=== PATIENT | female | born 1955 | race Caucasian/White ===

== ENCOUNTER 2016-12-01 15:07 | Outpatient (CLI) | payer OTHER ==
[2016-12-01 15:34] LABS: #Basophils 0.2 thou/uL (0.0-0.2); #Eosinphils 0.2 thou/uL (0.0-0.7); #Lymphocytes 2.7 thou/uL (1.20-3.40); #Monocytes 1.3 thou/uL (0.11-0.59); #Neutrophils 13.3 thou/uL (1.40-6.50); %Basophils 1.1 % (0.0-1.0); %Eosinophils 1.3 % (0.0-10.0); %Monocytes 7.2 % (0.0-10.0); %Neutrophils 75.4 % (42.0-75.0); Hemoglobin 10.8 g/dL (12.0-16.0); Mean Corpuscular HGB CONC 30.9 g/dL (32.0-36.0); Mean Corpuscular Hemoglobin 25.8 pg (27.0-31.0); Mean Corpuscular Volume 83.5 fl (81.0-99.0); Mean Platelet Volume 8.3 fL (7.4-10.4); Platelet Count 436 thou/uL (130-400); RBC Distribution Width 17.7 % (11.5-14.5); Red Blood Cell (RBC) Count 4.21 mill/uL (4.20-5.40); White Blood Cell (WBC) Count 17.6 thou/uL (4.8-10.8)
[2016-12-01 15:59] LABS: Bilirubin Negative (Negative); Blood, Urine Moderate (Negative); Clarity Clear (Clear); Glucose, Urine (Dipstick) Negative (Negative); Leukocyte Negative (Negative); Nitrite Negative (Negative); Protein, Urine (Dipstick) Trace mg/dL (Neg-Trace); Urobilinogen 0.2 mg/dL (0.2-1.0); pH, Urine 5.5 (5.0-9.0)
[2016-12-01 16:04] LABS: Anion Gap 15 mmol/L (10-20); BUN (Urea Nitrogen) 16 mg/dL (9.8-20.1); Calc. Creatinine Clearance 0 mL/min (70-130); Calcium 9.7 mg/dL (7.8-10.44); Carbon Dioxide 25 mmol/L (23-31); Chloride 100 mmol/L (98-107); Estimated GFR-MDRD 58; Potassium 4.5 mmol/L (3.5-5.1); Sodium 135 mmol/L (136-145)
[2016-12-01 16:08] LABS: Crystals/HPF 2+ CA OXALATE HPF (Negative); Squamous Epithelial 0-3 HPF (0-3)
[2016-12-01 16:43] LABS: Glucose 143 mg/dL (80-115)
== END 2016-12-01 15:08 ==
LOC: NAVSJIPCSP 15:07 → NAV LAB 15:08
PROVIDERS: ATTEND Nurse Practitioner Family
DX: R39.9 Unspecified symptoms and signs involving the genitourinary system (principal)
CPT/HCPCS: 80048; 81003; 81015; 85025; 87086

== ENCOUNTER 2016-12-13 20:03 | Emergency (ER) | payer OTHER ==
[~2016-12-13 20:03] MED LIST: Iopamidol 370 76% 100 ML VIAL ONE
[2016-12-13] MEDS ORDERED: Ondansetron HCl/PF 4 MG/2 ML Vial ONE ×2 (20:12→20:37)
[2016-12-13] MEDS ORDERED: Sodium Chloride 0.9% 1,000 ML ONE ×2 (20:29→21:53)
[2016-12-13] MEDS ORDERED: Ketorolac Tromethamine 30 MG/ML VIAL ONE (20:37)
[2016-12-13 20:55] LABS: Band 4 % (5-11); Lymphocytes 9 % (21-51); MDiff Complete? YES; Mean Corpuscular HGB CONC 31.5 g/dL (32.0-36.0); Mean Corpuscular Hemoglobin 25.4 pg (27.0-31.0); Mean Corpuscular Volume 80.8 fl (81.0-99.0); Mean Platelet Volume 7.5 fL (7.4-10.4); Monocytes 4 % (0-10); Neutrophil 83 % (42-75); PLT Morphology Comment Appears Adequate; Platelet Count 427 thou/uL (130-400); RBC Distribution Width 17.5 % (11.5-14.5); RBC Morphology Normal
[2016-12-13 21:00] LABS: CKMB 1.5 ng/mL (0-6.6); Troponin I 0.012 ng/mL (< 0.028)
[2016-12-13 21:01] LABS: ALT (SGPT) 12 U/L (0-55); AST (SGOT) 19 U/L (5-34); Albumin 3.9 g/dL (3.4-4.8); Alkaline Phosphatase 81 U/L (40-150); Anion Gap 21 mmol/L (10-20); BUN (Urea Nitrogen) 11 mg/dL (9.8-20.1); Bilirubin, Total 0.4 mg/dL (0.2-1.2); Calc. Creatinine Clearance 0 mL/min (70-130); Calcium 10.5 mg/dL (7.8-10.44); Carbon Dioxide 17 mmol/L (23-31); Chloride 103 mmol/L (98-107); Estimated GFR-MDRD 71; Globulin 5.4 g/dL (2.4-3.5); Glucose 153 mg/dL (80-115); Lipase 32 U/L (8-78); Potassium 3.8 mmol/L (3.5-5.1); Protein, Total 9.3 g/dL (5.8-8.1); Sodium 137 mmol/L (136-145)
--- NOTE | 2016-12-13 21:44 | CT ---
EXAM: ABDOMEN CT WITH CONTRAST PELVIC CT WITH CONTRAST 12/13/16 HISTORY: Abdominal pain. Crohn's disease. Vulvar adenocarcinoma. COMPARISON: 02/07/16. 09/06/14. TECHNIQUE: Abdomen and pelvic CT are performed with IV contrast. Coronal reformatted images are submitted for i nterpretation. FINDINGS: ABDOMEN CT: The lung bases are clear. Heart size is upper normal. No pericardial effusion. Descending thoracic a brandi and the abdominal aorta have a normal caliber. No periaortic fat stranding. Symmetric attenuation of the psoas muscles. Spleen is surgically absent. Splenule is noted. The panc reas and adrenal glands have a appropriate enhancement. There is appropriate enhancement of the liver. There is some nodularity along the right hepatic lobe as well as the posterior peritoneum adjacent to the posterior segment of the right hepatic lobe. Th ashly densities are similar to the prior examination and may represent small splenules. Symmetric enhancement of the kidneys. Bilaterally, no obstructive uropathy. Note, the entire ureter is not appreciated due to extensive surgical clips in the pelvis. No mesenteric mass, lymphadenopathy, free air or free fluid. Stable ostomy in the right lower quadra nt. Multiple proximal normal caliber small bowel loops. There does appear to be a transition in the over all diameter of the small bowel loops (axial image #42, coronal image #34). Beyond the level of this transition, there are multiple fluid filled loops of bowel. Obstructive process cannot be completel y excluded. Note, there are distal small bowel loops which are decompressed. There is a nonspecific hyperdensity in a segment of small bowel measuring 1.[address]: Limited evaluation due to beam attenuation artifact from surgical clips and a right hip prosthesis. Unrinary bladder is grossly unremarkable. There are multiple fluid filled loops of small bowel. IMPRESSION: 1. Extensive postsurgical changes in the pelvis rendering limited evaluation. There appear to b e fluid filled loops of prominent small bowel, in the mid portion of the small bowel. Obstructive pr ocess cannot be excluded. 2. Nonspecific hyperdensity in a segment of small bowel. 3. Multiple nodularities adjacent to the posterior segment of the right hepatic lobe and long t he peritoneal margin in the posterior right upper quadrant. Findings are similar to the prior examin ation. Possibility of small splenules is raised. POS: [facility]
[2016-12-13 22:08] LABS: Bilirubin Negative (Negative); Blood, Urine Moderate (Negative); Clarity Clear (Clear); Glucose, Urine (Dipstick) Negative (Negative); Leukocyte Negative (Negative); Nitrite Negative (Negative); Protein, Urine (Dipstick) Negative (Neg-Trace); Urobilinogen 0.2 mg/dL (0.2-1.0); pH, Urine 6.5 (5.0-9.0)
[2016-12-13 22:09] LABS: Bacteria/HPF None Seen HPF (None Seen); Specific Gravity, Urine 1.005 (1.002-1.036); WBC/HPF None Seen HPF (0-3)
[2016-12-13 23:43] LABS: Lactic Acid 1.1 mmol/L (0.5-2.2)
== END 2016-12-14 00:15 | disposition home or self-care (01) ==
LOC: NAV ERS 20:03
DX: R11.2 Nausea with vomiting, unspecified (principal); M81.0 Age-related osteoporosis without current pathological fracture; I10 Essential (primary) hypertension; Z79.899 Other long term (current) drug therapy
CPT/HCPCS: 36415; 74177; 80053; 81003; 81015; 82553; 83605; 83690; 84484; 85025; 93005; 96361; 96374; 96375; J1885; J2405; J7050

== ENCOUNTER 2016-12-25 08:53 | Outpatient (CLI) | payer OTHER ==
--- NOTE | 2016-12-25 14:24 | ULT ---
RIGHT UPPER ANTERIOR THIGH ULTRASOUND EXTREMITY NONVASCULAR COMPLETE: HISTORY: Cellulitis versus abscess. The area has grown in size from a quarter in August 2016 to the size it is today. It has worsened over the last 2 weeks. COMPARISON: Within the right anterior thigh soft tissues, there appears to be a complex fluid collection measuri ng 8 x 2.3 x 2.4 cm with a few areas of internal blood flow. The surrounding soft tissues appear hyperemic. IMPRESSION: Large collection along the right anterior thigh with a few areas of internal blood flow. This may r epresent a focal abscess given history of cellulitis. Soft tissue metastasis is felt less likely. A real-time examination performed by the radiologist is recommended. MRI with contrast may also be beneficial given the findings. POS: [facility]
== END 2016-12-25 08:54 | disposition home or self-care (01) ==
LOC: NAV ULT 08:53
PROVIDERS: ATTEND Family Medicine
DX: L03.115 Cellulitis of right lower limb (principal)
CPT/HCPCS: 76881

== ENCOUNTER 2017-02-02 18:30 | Emergency (ER) | payer OTHER ==
[2017-02-02] MEDS ORDERED: Ketorolac Tromethamine 30 MG/ML VIAL ONE (19:12)
[2017-02-02] MEDS ORDERED: Sodium Chloride 0.9% 1,000 ML ONE ×2 (19:12→22:06)
[2017-02-02] MEDS ORDERED: Ondansetron HCl/PF 4 MG/2 ML Vial ONE ×3 (19:12→23:53)
[2017-02-02] MEDS ORDERED: Ondansetron ODT 4 MG TAB ONE (19:15)
[2017-02-02 19:30] LABS: #Basophils 0.2 thou/uL (0.0-0.2); #Lymphocytes 2.4 thou/uL (1.20-3.40); #Monocytes 1.2 thou/uL (0.11-0.59); #Neutrophils 15.9 thou/uL (1.40-6.50); %Basophils 0.8 % (0.0-1.0); %Eosinophils 0.1 % (0.0-10.0); %Lymphocytes 12.3 % (21.0-51.0); %Neutrophils 80.9 % (42.0-75.0); Hemoglobin 13.1 g/dL (12.0-16.0); Mean Corpuscular HGB CONC 30.1 g/dL (32.0-36.0); Mean Corpuscular Hemoglobin 24.8 pg (27.0-31.0); Mean Corpuscular Volume 82.5 fl (81.0-99.0); Mean Platelet Volume 8.9 fL (7.4-10.4); Platelet Count 448 thou/uL (130-400); RBC Distribution Width 17.4 % (11.5-14.5); Red Blood Cell (RBC) Count 5.29 mill/uL (4.20-5.40); White Blood Cell (WBC) Count 19.7 thou/uL (4.8-10.8)
[2017-02-02 19:44] LABS: ALT (SGPT) 13 U/L (8-55); AST (SGOT) 17 U/L (5-34); Albumin 3.9 g/dL (3.4-4.8); Alkaline Phosphatase 74 U/L (40-150); Anion Gap 20 mmol/L (10-20); BUN (Urea Nitrogen) 18 mg/dL (9.8-20.1); Bilirubin, Total 0.6 mg/dL (0.2-1.2); Calc. Creatinine Clearance 0 mL/min (70-130); Calcium 10.7 mg/dL (7.8-10.44); Carbon Dioxide 22 mmol/L (23-31); Chloride 96 mmol/L (98-107); Estimated GFR-MDRD 65; Globulin 5.1 g/dL (2.4-3.5); Glucose 124 mg/dL (80-115); Lipase 20 U/L (8-78); Sodium 134 mmol/L (136-145)
[2017-02-02 19:51] LABS: Hypochromia MODERATE=16-30 cells (100X) (0-5/hpf); MDiff Complete? YES; PLT Morphology Comment Appears Increased; Poikilocytosis SLIGHT = 6-15 cells (100X) (0-5/hpf)
--- NOTE | 2017-02-02 20:02 | RAD ---
FRONTAL RADIOGRAPH CHEST 02/02/2017 HISTORY: Lower abdominal cramping. Nausea and vomiting. COMPARISON: 02/07/2016 TECHNIQUE: Upright and supine frontal imaging of the abdomen and pelvis. FINDINGS: Frontal radiograph chest demonstrates no pneumothorax or pleural fluid. No focal consolidation or a lveolar edema. Upright imaging demonstrates no free intraperitoneal air. As seen on the prior examination, there is a paucity of bowel gas. There are postoperative clips in the pelvis. There is a hip arthroplasty on the right. There is degenerative change and probable p ost traumatic change at the level of the pubic symphysis, stable. There is a suggestion of possible mild bowel wall thickening in the mid left abdomen, inferiorly, no nspecific. A partially imaged ostomy is suspected in the left lower quadrant. IMPRESSION: Paucity of bowel gas noted. No free intraperitoneal air or evidence for acute cardiopulmonary disea se. Question mild bowel wall thickening in the left lower quadrant. CT A/P may be beneficial. POS: [facility]
[2017-02-02 20:57] LABS: Blood, Urine Large (Negative); Clarity Clear (Clear); Glucose, Urine (Dipstick) Negative (Negative); Leukocyte Trace (Negative); Nitrite Negative (Negative); Protein, Urine (Dipstick) 100 mg/dL (Neg-Trace); Urobilinogen 0.2 mg/dL (0.2-1.0)
[2017-02-02 21:08] LABS: Bilirubin Negative (Negative); Icto Negative (Negative)
[2017-02-02 21:09] LABS: Bacteria/HPF Rare-Few HPF (None Seen); RBC/HPF GREATER THAN 50-TNTC HPF (0-3); WBC/HPF 0-3 HPF (0-3)
--- NOTE | 2017-02-02 22:25 | CT ---
ABDOMEN AND PELVIS CT WITHOUT CONTRAST 02/02/2017 HISTORY: Lower abdominal pain and cramping. COMPARISON: 12/13/2016 TECHNIQUE: Serial axial CT imaging obtained at 5 mm intervals, from the lung bases through the pubic symphysis, without contrast. Coronal reformatted imaging obtained. FINDINGS: Lack of contrast limits assessment of the viscera, bowel, and vascular structures, and for lymphaden opathy. Linear scar and/or volume loss noted within the lateral aspect of the imaged left lung base, stable. There is no free intraperitoneal air. Limited assessment of the liver demonstrates granulomata. The gallbladder, pancreas, and adrenal gl ands are unremarkable. The spleen is not visualized. There are nodular densities within the bilateral upper quadrants. Th ashly nodular densities are stable. Given nonvisualization of a normal spleen, this suggests splenosi s. There is a punctate, nonobstructing stone within the mid pole of the right kidney. There is no evidence for obstructive uropathy on either side. There are post surgical clips in the pre-sacral space with associated streak artifact, limiting deta iled assessment. Streak artifact is also seen involving the right hemipelvis, on the basis of a rig ht hip prosthesis. Bowel is poorly assessed secondary to the lack of contrast media. There are num erous fluid-filled dilated loops of small bowel within the mid left abdomen/left lower quadrant, the pelvis, and the right lower quadrant, demonstrating a distribution, configuration, and degree of di lation, similar when compared to the 12/13/2016 exam. The colon appears surgically absent. There are numerous decompressed distal small bowel loops within the right upper quadrant, the anteri or aspect of the mid right abdomen, and in the region of a right lower quadrant ostomy, with a simil ar differential size when compared to the prior exam. There is atherosclerotic calcification of the abdominal aorta and its branches, not well characteriz ed without contrast media. There are severe degenerative changes involving the right sacroiliac sourav nt, stable. There are degenerative and remote post traumatic changes of the pubic symphysis. There is lower lumbar spine facet hypertrophic change. IMPRESSION: Stable CT of the abdomen/pelvis, as detailed above. Numerous fluid-filled loops of prominent proxim al small bowel noted, with distal decompressed small bowel. An obstructive process cannot be exclud ed. Of note, this is unchanged when compared to the 12/13/2016 examination and may represent chroni c obstruction and/or a recurrent small bowel obstruction. Clinical correlation is essential. POS: [facility]
--- NOTE | 2017-02-03 08:20 | CT ---
PRELIMINARY REPORT/[facility]/EMERGENCY AFTER HOURS PROCEDURE: EXAM: CT Abdomen and Pelvis With Intravenous Contrast CLINICAL HISTORY: 61 years old, female; Signs and symptoms; Nausea and vomiting; Prior surgery; Surgery date: 6+ month s; Surgery type: Splenectomy, colon resection, hysterectomy, hip replacement, ostomy; Additional inf o: HX of sbo, HX of inflammatory bowel disease TECHNIQUE: Axial computed tomography images of the abdomen and pelvis with intravenous contrast. This CT exam w as performed using one or more of the following dose reduction techniques: automated exposure contro l, adjustment of the mA and/or kV according to patient size, and/or use of iterative reconstruction technique. Coronal and sagittal reformatted images were created and reviewed. CONTRAST: 95 mL of ISOVUE 370 administered intravenously. EXAM DATE/TIME: Exam ordered 02/03/2017 2:02 AM COMPARISON: No relevant prior studies available. FINDINGS: Lower thorax: No acute findings. ABDOMEN: Liver: Unremarkable. No mass. Gallbladder and bile ducts: Unremarkable. No calcified stones. No ductal dilation. Pancreas: Unremarkable. No mass. No ductal dilation. Spleen: Proper spleen is absent. Multiple small splenules in its place. Adrenals: Unremarkable. No mass. Kidneys and ureters: Unremarkable. No solid mass. No hydronephrosis. Stomach and bowel: High-grade distal small bowel obstruction with transition point in the right lowe r quadrant. Prior colectomy. Right lower quadrant ileostomy. No bowel wall thickening. Appendix: See above. PELVIS: Bladder: Unremarkable. No mass. Reproductive: Unremarkable as visualized. ABDOMEN and PELVIS: Intraperitoneal space: Trace volume ascites. No pneumoperitoneum or abscess. Bones/joints: Right hip prosthesis. No acute fracture. No dislocation. Soft tissues: Unremarkable. Vasculature: Unremarkable. No abdominal aortic aneurysm. Lymph nodes: Unremarkable. No enlarged lymph nodes. Other findings: Chronic posttraumatic change of the pelvis. IMPRESSION: High-grade distal small bowel obstruction with transition point in the right lower quadrant. Thank you for allowing us to participate in the care of your patient. Dictated and Authenticated by: Yaakov Carlos MD 02/03/2017 2:56 AM Central Time ([place] \T\ [place]) FINAL REPORT CT ABDOMEN AND PELVIS WITH CONTRAST: HISTORY: Crohn's disease and vulvar adenocarcinoma. History of ileostomy, hysterectomy, splenectomy, and rig ht hip replacement. Nonspecific lesion in Morison's pouch. COMPARISON: CT abdomen. FINDINGS: Lung bases are clear. No pericardial effusion. There are multiple hyperattenuating nodules scattered throughout the abdomen. These are likely smal l remnant splenic nodules from prior splenectomy. There is some inflammation within the distal small bowel mesentery. There are numerous dilated loop s of small bowel without a single transition point, although there are multiple areas of narrowing a nd stricturing. The distal small bowel is collapsed. There are multiple areas of small bowel wall hyperenhancement and thickening. There is small-volume fluid within the pelvic cul-de-sac. 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 There are small volume ero sions of the left SI joint. There is severe degenerative disease of the left hip joint with narrowi ng and large subchondral cyst formation. There is nonhealing fracture of the left pubic body and in ferior pubic ramus. IMPRESSION: 1. Evidence for low-grade small bowel obstruction similar to the comparison examination yesterday a s well as from November 2016. There is likely sequelae of chronic inflammatory bowel disease given the stricturing and thickening of numerous loops of small bowel. There is also mild inflammatory stran ding within the mesentery and small volume fluid in the cul-de-sac. 2. Erosive changes of both sacroiliac joints is likely a component of underlying avascular necrosis . 3. 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 I agree with the majority of the preliminary report. CODE: QA POS: [facility]
== END 2017-02-03 04:50 | disposition short-term general hospital (02) ==
LOC: NAV ERS 18:30
DX: K56.60 Unspecified intestinal obstruction (principal); I10 Essential (primary) hypertension; M81.0 Age-related osteoporosis without current pathological fracture; K50.90 Crohn's disease, unspecified, without complications; F41.9 Anxiety disorder, unspecified; Z87.442 Personal history of urinary calculi; Z79.899 Other long term (current) drug therapy
CPT/HCPCS: 36415; 74022; 74176; 74177; 80053; 81003; 81015; 82150; 83605; 83690; 85025; 96361; 96374; 96375; 96376; J1885; J2270; J2405; J7050; Q0162

== ENCOUNTER 2019-03-06 17:19 | Emergency (ER) | payer OTHER ==
[2019-03-06] MEDS ORDERED: Morphine 4 MG/ML VIAL ONE (17:32)
[2019-03-06] MEDS ORDERED: Sodium Chloride 0.9% 1,000 ML ONE (17:32)
[2019-03-06] MEDS ORDERED: Ondansetron PF 4 MG/2 ML Vial ONE (17:32)
[2019-03-06 18:08] LABS: ALT (SGPT) 24 U/L (8-55); AST (SGOT) 22 U/L (5-34); Albumin 4.7 g/dL (3.4-4.8); Alkaline Phosphatase 78 U/L (40-150); Anion Gap 22 mmol/L (10-20); BUN (Urea Nitrogen) 14 mg/dL (9.8-20.1); Bilirubin, Total 0.6 mg/dL (0.2-1.2); Calc. Creatinine Clearance 0 mL/min (70-130); Calcium 11.5 mg/dL (7.8-10.44); Carbon Dioxide 17 mmol/L (23-31); Chloride 102 mmol/L (98-107); Estimated GFR-MDRD 55; Globulin 5.3 g/dL (2.4-3.5); Glucose 176 mg/dL (80-115); Lipase 45 U/L (8-78); Potassium 3.8 mmol/L (3.5-5.1); Sodium 137 mmol/L (136-145)
[2019-03-06 18:11] LABS: #Basophils 0.2 thou/uL (0.0-0.2); #Lymphocytes 2.5 thou/uL (1.20-3.40); #Monocytes 1.1 thou/uL (0.11-0.59); #Neutrophils 20.4 thou/uL (1.40-6.50); %Basophils 0.7 % (0.0-1.0); %Lymphocytes 10.3 % (21.0-51.0); %Monocytes 4.4 % (0.0-10.0); %Neutrophils 84.6 % (42.0-75.0); Hemoglobin 15.8 g/dL (12.0-16.0); Mean Corpuscular HGB CONC 30.9 g/dL (32.0-36.0); Mean Corpuscular Hemoglobin 26.7 pg (27.0-31.0); Mean Corpuscular Volume 86.4 fL (78.0-98.0); Mean Platelet Volume 8.8 fL (7.4-10.4); Platelet Count 354 thou/uL (130-400); RBC Distribution Width 16.5 % (11.5-14.5); Red Blood Cell (RBC) Count 5.91 mill/uL (4.20-5.40); White Blood Cell (WBC) Count 24.1 thou/uL (4.8-10.8)
[2019-03-06 18:12] LABS: Anisocytosis SLIGHT = 6-15 cells (100X) (0-5/hpf); Target Cells SLIGHT = 2-5 cells (100X) (0-1/hpf)
[2019-03-06 18:13] LABS: Diff Comment (RBC Morph SCRN) SCANNED NO IMMATURES
--- NOTE | 2019-03-06 18:51 | RAD ---
FRONTAL RADIOGRAPH CHEST: 03/06/2019 HISTORY: Prior abdominal surgery, pain. COMPARISON: None. TECHNIQUE: Upright and supine imaging of the abdomen and pelvis. FINDINGS: Frontal radiograph chest demonstrates no pneumothorax or pleural fluid and no focal consolidation or alveolar edema. Upright imaging demonstrates no free intraperitoneal air. There is a generalized pa ucity of bowel gas noted, limiting assessment of the bowel gas pattern. No dilated, gas-filled small bowel seen. There are clips within the pelvis. There is a hip arthroplasty on the right. IMPRESSION: 1. No free intraperitoneal air apparent. 2. No radiographic evidence of acute cardiopulmonary disease. 3. Paucity of bowel gas limits assessment of the bowel gas pattern. POS: [facility]
--- NOTE | 2019-03-06 20:55 | CT ---
CT abdomen and pelvis: 03/06/2019 COMPARISON: 02/03/2017 HISTORY: Nausea, vomiting, assess for bowel obstruction TECHNIQUE: Axial CT imaging at 5 mm intervals from lung bases through pubic symphysis with IV and ora l contrast. Coronal reformatted imaging obtained. FINDINGS: The imaged lung bases demonstrate mild linear density suggesting scar and/or volume loss. N o free intraperitoneal air noted. The hepatic parenchyma is diffusely hypodense, suggesting steatosis. The gallbladder, pancreas, adren al glands, and kidneys are grossly unremarkable. There are small soft tissue nodules noted in the upper abdomen, including 1 in the anterior gastrohepatic ligament region, a few adjacent to the super ior posterior right aspect of the liver, and a few in the left upper quadrant. No normal spleen is seen. Findings suggest splenosis. There are post surgical clips in the presacral space with associated streak artifact limiting detaile d assessment. The patient appears status post colectomy with a stable left lower quadrant ostomy. The stomach is mildly distended and contains oral contrast media. There are multiple moderately dilat ed fluid-filled loops of small bowel in the mid left abdomen extending into the left lower quadrant. There appears to to be a transition point to decompressed small bowel in the right lower qu adrant, best seen on axial image 73. Mild associated right lower quadrant mesenteric fat stranding. Findings suggest small bowel obstruction. There is scattered atherosclerotic calcification of the abdominal aorta and its branches. No abdomina l or pelvic lymphadenopathy is noted. There is a left hip prosthesis. No acute osseous abnormality is seen. Stable pelvic and lumbar spine degenerative changes. IMPRESSION: Small bowel obstruction with transition point in right lower quadrant. Additional chronic findings as described above.
[2019-03-06 21:56] LABS: Lactic Acid 1.4 mmol/L (0.5-2.2)
== END 2019-03-07 00:01 | disposition short-term general hospital (02) ==
LOC: NAV ERS 17:19
DX: K56.699 Other intestinal obstruction unspecified as to partial versus complete obstruction (principal); I10 Essential (primary) hypertension; F41.9 Anxiety disorder, unspecified; Z87.442 Personal history of urinary calculi; Z79.899 Other long term (current) drug therapy
CPT/HCPCS: 36415; 74022; 74177; 80053; 83605; 83690; 84484; 85025; 87040; 93005; 94760; 96361; 96374; 96375; J2270; J2405; J7050; Q9967

== ENCOUNTER 2019-03-09 10:35 | Emergency (ER) | payer OTHER ==
[2019-03-09] MEDS ORDERED: Ondansetron PF 4 MG/2 ML Vial ONE ×2 (11:07→11:48)
[2019-03-09] MEDS ORDERED: Morphine 4 MG/ML VIAL ONE ×3 (11:07→13:28)
[2019-03-09 11:22] LABS: #Basophils 0.1 thou/uL (0.0-0.2); #Lymphocytes 1.6 thou/uL (1.20-3.40); #Monocytes 0.9 thou/uL (0.11-0.59); #Neutrophils 14.1 thou/uL (1.40-6.50); %Basophils 0.8 % (0.0-1.0); %Lymphocytes 9.4 % (21.0-51.0); %Monocytes 5.3 % (0.0-10.0); %Neutrophils 84.4 % (42.0-75.0); Hemoglobin 13.2 g/dL (12.0-16.0); Mean Corpuscular HGB CONC 30.3 g/dL (32.0-36.0); Mean Corpuscular Hemoglobin 26.3 pg (27.0-31.0); Mean Corpuscular Volume 86.8 fL (78.0-98.0); Mean Platelet Volume 9.7 fL (7.4-10.4); Platelet Count 344 thou/uL (130-400); RBC Distribution Width 15.9 % (11.5-14.5); Red Blood Cell (RBC) Count 5.04 mill/uL (4.20-5.40); White Blood Cell (WBC) Count 16.6 thou/uL (4.8-10.8)
[2019-03-09 11:39] LABS: ALT (SGPT) 20 U/L (8-55); AST (SGOT) 19 U/L (5-34); Albumin 4.1 g/dL (3.4-4.8); Alkaline Phosphatase 61 U/L (40-150); Anion Gap 17 mmol/L (10-20); BUN (Urea Nitrogen) 11 mg/dL (9.8-20.1); Bilirubin, Total 0.5 mg/dL (0.2-1.2); Calc. Creatinine Clearance 0 mL/min (70-130); Calcium 10.3 mg/dL (7.8-10.44); Carbon Dioxide 21 mmol/L (23-31); Chloride 104 mmol/L (98-107); Estimated GFR-MDRD 79; Globulin 4.3 g/dL (2.4-3.5); Glucose 133 mg/dL (80-115); Potassium 3.8 mmol/L (3.5-5.1); Protein, Total 8.4 g/dL (6.0-8.3); Sodium 138 mmol/L (136-145)
[2019-03-09] MEDS ORDERED: Sodium Chloride 0.9% 1,000 ML ONE (11:47)
--- NOTE | 2019-03-09 11:54 | RAD ---
Frontal radiograph chest 2 views of abdomen: 03/09/2019 COMPARISON: 03/06/2019 HISTORY: Small bowel obstruction, Crohn's disease, ileostomy FINDINGS: Upright radiograph of the chest demonstrates no pneumothorax, pleural fluid, focal consolid ation, or alveolar edema. No free intraperitoneal air is noted on upright imaging. Evaluation of the bowel gas pattern is limited as there is very small volume gas within bowel on this exam. There is a right lower quadrant ostomy. There are postoperative clips within the pelvis. On the supine radiograph there is a mildly distended loop of small bowel within the mid left lower qu adrant measuring approximately 4 mm. When compared to radiographs performed 03/06/2019 there has been no significant interval change. However, a CT examination performed 03/06/2019 demonstrated evide nce of bowel obstruction with gas-filled dilated loops of small bowel within the left lower quadrant/left midabdomen. IMPRESSION: Mild residual small bowel distention in the left lower quadrant, which appears significan tly improved when compared to 03/06/2019. CT examination would be required for full assessment, but no interval worsening in gas-filled dilated small bowel seen.
== END 2019-03-09 13:38 | disposition home or self-care (01) ==
LOC: NAV ERS 10:35
DX: R11.2 Nausea with vomiting, unspecified (principal); R10.84 Generalized abdominal pain; I10 Essential (primary) hypertension; D72.829 Elevated white blood cell count, unspecified; K58.9 Irritable bowel syndrome, unspecified; F41.9 Anxiety disorder, unspecified; Z87.442 Personal history of urinary calculi; Z79.899 Other long term (current) drug therapy
CPT/HCPCS: 74022; 80053; 83605; 85025; 96361; 96374; 96375; 96376; J2270; J2405; J7050

== ENCOUNTER 2019-05-23 03:33 | Emergency (ER) | payer OTHER ==
[2019-05-23] MEDS ORDERED: Sodium Chloride 0.9% 1,000 ML ONE ×2 (04:02→06:53)
[2019-05-23] MEDS ORDERED: Ondansetron PF 4 MG/2 ML Vial ONE (04:02)
[2019-05-23] MEDS ORDERED: Morphine 4 MG/ML VIAL ONE (04:04)
[2019-05-23 04:34] LABS: #Basophils 0.1 thou/uL (0.0-0.2); #Lymphocytes 1.9 thou/uL (1.20-3.40); #Monocytes 0.3 thou/uL (0.11-0.59); #Neutrophils 16.3 thou/uL (1.40-6.50); %Basophils 0.4 % (0.0-1.0); %Lymphocytes 9.9 % (21.0-51.0); %Monocytes 1.8 % (0.0-10.0); %Neutrophils 87.9 % (42.0-75.0); Hypochromia SLIGHT = 6-15 cells (100X) (0-5/hpf); MDiff Complete? YES; Mean Corpuscular HGB CONC 29.9 g/dL (32.0-36.0); Mean Corpuscular Hemoglobin 25.4 pg (27.0-31.0); Mean Corpuscular Volume 84.9 fL (78.0-98.0); Mean Platelet Volume 8.1 fL (7.4-10.4); Platelet Count 381 thou/uL (130-400); Platelet Morphology Comment Appears Adequate; RBC Distribution Width 15.1 % (11.5-14.5); Red Blood Cell (RBC) Count 5.49 mill/uL (4.20-5.40); White Blood Cell (WBC) Count 18.6 thou/uL (4.8-10.8)
[2019-05-23 04:36] LABS: Anion Gap 20 mmol/L (10-20); BUN (Urea Nitrogen) 12 mg/dL (9.8-20.1); Carbon Dioxide 18 mmol/L (23-31); Chloride 102 mmol/L (98-107); Potassium 3.8 mmol/L (3.5-5.1); Sodium 136 mmol/L (136-145)
[2019-05-23 04:37] LABS: ALT (SGPT) 24 U/L (8-55); AST (SGOT) 25 U/L (5-34); Albumin 4.4 g/dL (3.4-4.8); Alkaline Phosphatase 91 U/L (40-110); Bilirubin, Total 0.4 mg/dL (0.2-1.2); Calc. Creatinine Clearance 0 mL/min (70-130); Calcium 10.5 mg/dL (7.8-10.44); Estimated GFR-MDRD 71; Globulin 5.1 g/dL (2.4-3.5); Glucose 183 mg/dL (80-115); Lipase 30 U/L (8-78); Protein, Total 9.5 g/dL (5.8-8.1)
[2019-05-23] MEDS ORDERED: Morphine 2 MG/ML SYRINGE ONE (06:00)
[2019-05-23 06:19] LABS: Bilirubin Negative (Negative); Blood, Urine Negative (Negative); Clarity Clear (Clear); Glucose, Urine (Dipstick) Negative (Negative); Leukocyte Negative (Negative); Nitrite Negative (Negative); Protein, Urine (Dipstick) 100 mg/dL (Neg-Trace); Urobilinogen 0.2 mg/dL (Less than 2)
[2019-05-23 06:20] LABS: Bacteria/HPF None Seen HPF (None Seen); RBC/HPF None Seen HPF (0-3); Squamous Epithelial 0-3 HPF (0-3); WBC/HPF 0-3 HPF (0-3)
--- NOTE | 2019-05-23 07:52 | CT ---
PRELIMINARY REPORT/[facility]/EMERGENCY AFTER HOURS PROCEDURE: PROCEDURE INFORMATION: Exam: CT Abdomen And Pelvis With Contrast Exam date and time: 05/23/2019 6:07 AM Clinical history: 63 years old, female; Abdominal pain; Generalized; Prior surgery; Surgery date: 6+ months; Surgery type: Exploratory laparotomy and splenectomy for trauma in 1969, . partial colectomy (entire large bowel) with subsequent apr and permanent ileostomy in 1991. Right total hip replacement and tubal ligation. Right, open removal of kidney stone with postoperative wound infectio n. . ; Patient HX: PT with abd cramping and vomiting since last pm. Has a history of crohns and sbo for which she is scheduled surgery in 2 weeks. Last seen 2 months ago for the same and [facility]. TECHNIQUE: Imaging protocol: Computed tomography of the abdomen and pelvis with intravenous contrast. Radiation optimization: All CT scans at this facility use at least one of these dose optimization jhon hniques: automated exposure control; mA and/or kV adjustment per patient size (includes targeted exam s where dose is matched to clinical indication); or iterative reconstruction. Contrast material: ISOVUE 370; Contrast volume: 96 ml; Contrast route: LT AC; COMPARISON: No relevant prior studies available. FINDINGS: Lungs: Mild bibasal subsegmental atelectasis. Liver: Hepatic steatosis. Gallbladder and bile ducts: Unremarkable. Pancreas: Unremarkable. Spleen: Splenectomy. Adrenals: Unremarkable. Kidneys and ureters: Unremarkable. Stomach and bowel: Colectomy. Right lower quadrant ileostomy. Multiple dilated loops of small bowel w ith change in caliber anteriorly in the lower pelvis (80, coronal 53-66). Other than a short segment of mildly dilated small bowel just beyond the transition point, remainder of the bowel in the right abdomen is decompressed. Oral contrast has not yet reached the transition zone. No definite bow el wall thickening. Minimal mesenteric haziness in the right lower quadrant without inflammatory barba ges otherwise identified. Appendix: No evidence of appendicitis. Intraperitoneal space: No significant fluid collection. No free air. Vasculature: Unremarkable. Lymph nodes: No enlarged lymph nodes. Bladder: Underdistended. Reproductive: Hysterectomy. Bones/joints: Total right hip arthroplasty with associated streak artifact in the pelvis. Soft tissues: Unremarkable. IMPRESSION: Findings suggestive of small bowel obstruction. Thank you for allowing us to participate in the care of your patient. Dictated and Authenticated by: Arsenio Baxter MD 05/23/2019 6:39 AM Central Time ([place] & [place]) FINAL REPORT EMERGENCY AFTER HOURS CT ABDOMEN AND PELVIS WITH IV AND ORAL CONTRAST: Date: 05/23/19 FINDINGS/IMPRESSION: I agree with the preliminary report given by Dr. Arsenio Baxter of [facility]. Splenosis in the left upper quadrant noted on the previous exam of 03/06/19 is again seen. POS: [facility]
[2019-05-23 08:39] LABS: Lactic Acid 1.3 mmol/L (0.5-2.2)
[2019-05-23] MEDS ORDERED: Iopamidol 370 76% 100 ML VIAL ONE (09:00)
== END 2019-05-23 09:37 | disposition home or self-care (01) ==
LOC: NAV ERS 03:33
DX: K91.0 Vomiting following gastrointestinal surgery (principal); I10 Essential (primary) hypertension; F41.9 Anxiety disorder, unspecified; Z79.899 Other long term (current) drug therapy
CPT/HCPCS: 74177; 80053; 81003; 81015; 83605; 83690; 85025; 96361; 96374; 96375; 96376; J2270; J2405; J7050; Q9967

== ENCOUNTER 2019-06-17 11:25 | Emergency (ER) | payer OTHER ==
[2019-06-17] MEDS ORDERED: Morphine 4 MG/ML VIAL ONE (11:53)
[2019-06-17] MEDS ORDERED: Ondansetron PF 4 MG/2 ML Vial ONE (11:53)
[2019-06-17] MEDS ORDERED: Sodium Chloride 0.9% 2,000 ML ONE (11:53)
[2019-06-17 11:56] LABS: #Basophils 0.1 thou/uL (0.0-0.2); #Lymphocytes 2.1 thou/uL (1.20-3.40); #Monocytes 1.1 thou/uL (0.11-0.59); #Neutrophils 12.5 thou/uL (1.40-6.50); %Basophils 0.6 % (0.0-1.0); %Eosinophils 0.2 % (0.0-10.0); %Lymphocytes 13.3 % (21.0-51.0); %Monocytes 6.8 % (0.0-10.0); %Neutrophils 79.1 % (42.0-75.0); Hemoglobin 13.6 g/dL (12.0-16.0); Mean Corpuscular HGB CONC 30.9 g/dL (32.0-36.0); Mean Platelet Volume 9.8 fL (7.4-10.4); Platelet Count 408 thou/uL (130-400); RBC Distribution Width 16.4 % (11.5-14.5); Red Blood Cell (RBC) Count 5.23 mill/uL (4.20-5.40); White Blood Cell (WBC) Count 15.8 thou/uL (4.8-10.8)
--- NOTE | 2019-06-17 12:06 | RAD ---
KUB INDICATION: History of nausea and vomiting COMPARISON: Prior CT the abdomen and pelvis dated May 23, 2019 and acute abdominal series dated 2018 FINDINGS: Bowel gas: Nonspecific but without overt appearance of obstruction. There is a right lower quadrant o stomy site. Lung bases: Clear. Additional findings: There are numerous surgical clips within the lower pelvis which is stable. There is a right total hip prosthesis in place. Osseous structures: No acute osseous abnormality is demonstrated. There is scattered degenerative and osteoarthritic change present. IMPRESSION: 1. No acute abnormality.
[2019-06-17 12:15] LABS: ALT (SGPT) 21 U/L (8-55); AST (SGOT) 20 U/L (5-34); Albumin 4.2 g/dL (3.4-4.8); Alkaline Phosphatase 91 U/L (40-110); Anion Gap 19 mmol/L (10-20); BUN (Urea Nitrogen) 22 mg/dL (9.8-20.1); Bilirubin, Total 0.5 mg/dL (0.2-1.2); Calc. Creatinine Clearance 0 mL/min (70-130); Calcium 10.2 mg/dL (7.8-10.44); Carbon Dioxide 13 mmol/L (23-31); Chloride 101 mmol/L (98-107); Estimated GFR-MDRD 60; Globulin 4.7 g/dL (2.4-3.5); Glucose 145 mg/dL (80-115); Protein, Total 8.9 g/dL (6.0-8.3); Sodium 128 mmol/L (136-145)
[2019-06-17 14:11] LABS: Anion Gap 15 mmol/L (10-20); BUN (Urea Nitrogen) 20 mg/dL (9.8-20.1); Calc. Creatinine Clearance 0 mL/min (70-130); Calcium 8.7 mg/dL (7.8-10.44); Carbon Dioxide 17 mmol/L (23-31); Chloride 105 mmol/L (98-107); Estimated GFR-MDRD 77; Glucose 115 mg/dL (80-115); Potassium 4.9 mmol/L (3.5-5.1); Sodium 132 mmol/L (136-145)
[2019-06-17] MEDS ORDERED: Sodium Chloride 0.9% 500 ML ONE (14:31)
== END 2019-06-17 15:07 | disposition home or self-care (01) ==
LOC: NAV ERS 11:25
DX: E86.0 Dehydration (principal); R11.2 Nausea with vomiting, unspecified; I10 Essential (primary) hypertension; F41.9 Anxiety disorder, unspecified; Z79.899 Other long term (current) drug therapy
CPT/HCPCS: 74018; 80053; 83605; 85025; 96361; 96374; 96375; J2270; J2405; J7050

== ENCOUNTER 2020-04-09 00:07 | Emergency (ER) | payer OTHER ==
[2020-04-09] MEDS ORDERED: Morphine 4 MG/ML VIAL ONE ×2 (00:48→03:53)
[2020-04-09] MEDS ORDERED: Ondansetron PF 4 MG/2 ML Vial ONE (00:49)
[2020-04-09] MEDS ORDERED: Morphine 2 MG/ML SYRINGE ONE ×2 (00:49→03:54)
[2020-04-09] MEDS ORDERED: Sodium Chloride 0.9% 1,000 ML ONE (00:49)
[2020-04-09 00:56] LABS: Hemoglobin 15.5 g/dL (12.0-16.0); Mean Corpuscular HGB CONC 29.8 g/dL (32.0-36.0); Mean Corpuscular Hemoglobin 26.9 pg (27.0-31.0); Mean Corpuscular Volume 90.3 fL (78.0-98.0); Mean Platelet Volume 11.2 fL (7.4-10.4); Platelet Count 280 thou/uL (130-400); RBC Distribution Width 18.7 % (11.5-14.5); Red Blood Cell (RBC) Count 5.76 mill/uL (4.20-5.40); White Blood Cell (WBC) Count 25.5 thou/uL (4.8-10.8)
[2020-04-09 01:02] LABS: Anisocytosis SLIGHT = 6-15 cells (100X) (0-5/hpf); Band 11 % (5-11); Lymphocytes 14 % (21-51); MDiff Complete? YES; Monocytes 3 % (0-10); Neutrophil 63 % (42-75); Platelet Morphology Comment Appears Adequate; Reactive Lymphocytes 9 % (0-10); Target Cells SLIGHT = 2-5 cells (100X) (0-1/hpf)
[2020-04-09 01:04] LABS: ALT (SGPT) 25 U/L (8-55); AST (SGOT) 23 U/L (5-34); Albumin 4.3 g/dL (3.4-4.8); Alkaline Phosphatase 79 U/L (40-110); Anion Gap 19 mmol/L (10-20); BUN (Urea Nitrogen) 12 mg/dL (9.8-20.1); Bilirubin, Total 0.4 mg/dL (0.2-1.2); Calc. Creatinine Clearance 0 mL/min (70-130); Calcium 11.4 mg/dL (7.8-10.44); Carbon Dioxide 22 mmol/L (23-31); Chloride 98 mmol/L (98-107); Estimated GFR-MDRD 69; Globulin 4.9 g/dL (2.4-3.5); Glucose 175 mg/dL (80-115); Potassium 4.1 mmol/L (3.5-5.1); Protein, Total 9.2 g/dL (6.0-8.3); Sodium 135 mmol/L (136-145)
[2020-04-09 01:23] LABS: CKMB 1.9 ng/mL (0-6.6)
[2020-04-09 03:21] LABS: Bilirubin Small (Negative); Blood, Urine Negative (Negative); Clarity Clear (Clear); Glucose, Urine (Dipstick) Negative (Negative); Ketone, Urine 15 mg/dL (Negative); Leukocyte Negative (Negative); Nitrite Negative (Negative); Protein, Urine (Dipstick) 30 mg/dL (Neg-Trace); Specific Gravity, Urine 1.023 (1.002-1.036); Urobilinogen 0.2 mg/dL (Less than 2); pH, Urine 5.5 (5.0-9.0)
[2020-04-09 03:24] LABS: Bacteria/HPF Rare-Few HPF (None Seen); RBC/HPF None Seen HPF (0-3); Squamous Epithelial 0-3 HPF (0-3); WBC/HPF 0-3 HPF (0-3)
[2020-04-09 03:25] LABS: Calcium Oxalate Crystals Rare HPF (None Seen)
[2020-04-09 03:25] LABS: Lactic Acid 2.2 mmol/L (0.5-2.2)
[2020-04-09] MEDS ORDERED: metroNIDAZOLE 500 MG/100 ML BAG ONE (03:31)
--- NOTE | 2020-04-09 08:50 | CT ---
PRELIMINARY REPORT/[facility]/EMERGENCY AFTER HOURS PROCEDURE: Receipt of this report by the clinical staff was confirmed with Jacklyn Vernon RN by Kelsie Nava on Apr 09, 2020 02:54:00 CDT. Addendum electronically signed by Kelsie Nava on April 09, 2020 2:54:24 AM CDT EXAM: CT ABDOMEN PELVIS W CON HISTORY: History of Crohn's disease, bowel obstructions, ileostomy, presents with abdominal cramping, vomiting, decreased ostomy output with concern for bowel obstruction. Patient states she has been vo miting every 15 minutes since 9 PM. No output from the ileostomy since 17:00. 4" of SB removed last O ct (2018). COMPARISON: None FINDINGS: Bibasilar atelectasis. Left basilar subsegmental atelectasis versus scarring. No pericardial effusion. No acute abnormality of the liver, gallbladder or pancreas. The spleen is absent, with residual splenule, or markedly diminutive. No renal or ureteral stone. No hydronephrosis or hydroureter. Postsurgical changes of prior colectomy. Multiple dilated loops of fluid-filled small bowel throughout the lower abdomen and pelvis. No discr ete transition point. Small bowel within the ileostomy is decompressed. No pneumatosis or portal venous gas. No evidence for perforation or abscess. Stacie calcifications within the descending abdominal aorta. Right hip total arthroplasty hardware, incompletely visualized. Chronic posttraumatic change of the left superior pubic ramus. IMPRESSION: 1. Small bowel obstruction without discrete transition point versus ileus. 2. Extensive postsurgical changes. ELECTRONICALLY SIGNED BY: Kwan Grewal MD Apr 09, 2020 2:48:35 AM CDT This report is intended for review by the ordering physician only, in accordance of law. If you recei ve this report in error, please call [facility] at [phone]. FINAL REPORT CT ABDOMEN AND PELVIS: The patient appears to be post colectomy. There is an ileostomy in the right abdomen. There is a pa rastomal hernia. There are dilated loops of fluid-filled small bowel in the mid abdomen. Probable t ransition zone in the right abdomen just proximal to the ostomy. Liver, adrenal glands, and kidneys are unremarkable. There are scattered enlarged mesenteric lymph nodes. The patient appears to be po st splenectomy with a splenule seen in the left upper quadrant. IMPRESSION: Evidence of small bowel obstruction. I am in agreement with the preliminary report.
[2020-04-09] MEDS ORDERED: Iopamidol 370 76% 100 ML VIAL ONE (09:00)
== END 2020-04-09 04:25 | disposition short-term general hospital (02) ==
LOC: NAV ERS 00:07
DX: K56.609 Unspecified intestinal obstruction, unspecified as to partial versus complete obstruction (principal); I10 Essential (primary) hypertension
CPT/HCPCS: 74177; 80053; 81003; 81015; 82553; 83605; 84484; 85025; 93005; 96361; 96365; 96375; 96376; J2270; J2405; J7050; Q9967

== ENCOUNTER 2020-11-27 23:35 | Emergency (ER) | payer MEDICARE, OTHER ==
[2020-11-28] MEDS ORDERED: Enalaprilat Dihydrate 1.25 MG/ML VIAL ONE (00:10)
[2020-11-28 00:54] LABS: ALT (SGPT) 24 U/L (8-55); AST (SGOT) 23 U/L (5-34); Albumin 4.2 g/dL (3.4-4.8); Alkaline Phosphatase 88 U/L (40-110); Anion Gap 21 mmol/L (10-20); BUN (Urea Nitrogen) 13 mg/dL (9.8-20.1); Bilirubin, Total 0.8 mg/dL (0.2-1.2); Calc. Creatinine Clearance 0 mL/min (70-130); Calcium 10.7 mg/dL (7.8-10.44); Carbon Dioxide 18 mmol/L (23-31); Chloride 101 mmol/L (98-107); Globulin 5.2 g/dL (2.4-3.5); Glucose 147 mg/dL (80-115); Lipase 34 U/L (8-78); Potassium 4.2 mmol/L (3.5-5.1); Protein, Total 9.4 g/dL (5.8-8.1); Sodium 136 mmol/L (136-145)
[2020-11-28 01:26] LABS: Hemoglobin 15.7 g/dL (12.0-16.0); Mean Corpuscular HGB CONC 29.5 g/dL (32.0-36.0); Mean Corpuscular Hemoglobin 28.5 pg (27.0-31.0); Mean Corpuscular Volume 96.5 fL (78.0-98.0); Platelet Count 265 thou/uL (130-400); RBC Distribution Width 13.8 % (11.5-14.5); White Blood Cell (WBC) Count 22.6 thou/uL (4.8-10.8)
[2020-11-28 01:27] LABS: Eosinophils 1 % (0-10); Lymphocytes 28 % (21-51); Manual Diff?? YES; Mean Platelet Volume 12.7 fL (7.4-10.4); Monocytes 9 % (0-10); Neutrophil 53 % (42-75); RBC Morphology Normal; Reactive Lymphocytes 9 % (0-10)
[2020-11-28 01:29] LABS: MDiff Complete? YES
[2020-11-28] MEDS ORDERED: Sodium Chloride 0.9% 2,000 ML ONE (01:32)
[2020-11-28 03:32] LABS: Lactic Acid 1.2 mmol/L (0.5-2.2)
[2020-11-28 03:36] LABS: Hemoglobin 13.6 g/dL (12.0-16.0); Hypochromia SLIGHT = 6-15 cells (100X) (0-5/hpf); Large Platelets SLIGHT; Lymphocytes 9 % (21-51); MDiff Complete? YES; Mean Corpuscular HGB CONC 29.8 g/dL (32.0-36.0); Mean Corpuscular Hemoglobin 29.3 pg (27.0-31.0); Mean Corpuscular Volume 98.1 fL (78.0-98.0); Mean Platelet Volume 11.9 fL (7.4-10.4); Monocytes 9 % (0-10); Neutrophil 73 % (42-75); Platelet Count 224 thou/uL (130-400); Platelet Morphology Comment Appears Adequate; RBC Distribution Width 13.7 % (11.5-14.5); Reactive Lymphocytes 9 % (0-10); Red Blood Cell (RBC) Count 4.64 mill/uL (4.20-5.40); Target Cells MODERATE= 6-15 cells (100X) (0-1/hpf); White Blood Cell (WBC) Count 21.6 thou/uL (4.8-10.8)
[2020-11-28 03:37] LABS: Manual Diff?? YES
== END 2020-11-28 03:45 | disposition home or self-care (01) ==
LOC: NAV ERS 23:35
DX: E86.0 Dehydration (principal); K52.9 Noninfective gastroenteritis and colitis, unspecified; I10 Essential (primary) hypertension; Z79.899 Other long term (current) drug therapy
CPT/HCPCS: 74176; 80053; 83605; 83690; 85025; 96374; J7050

== ENCOUNTER 2025-06-01 03:53 | Emergency (ER) | payer MEDICARE ==
[2025-06-01 04:45] LABS: #Basophils 0.4 thou/uL (0.0-0.2); #Eosinophils 0.1 thou/uL (0.0-0.7); #Lymphocytes 4.6 thou/uL (1.20-3.40); #Monocytes 1.6 thou/uL (0.11-0.59); #Neutrophils 6.4 thou/uL (1.40-6.50); %Basophils 3.4 % (0.0-1.0); %Eosinophils 0.6 % (0.0-10.0); %Lymphocytes 34.9 % (21.0-51.0); %Monocytes 11.9 % (0.0-10.0); %Neutrophils 49.1 % (42.0-75.0); Hematocrit 50.4 % (36.0-47.0); Hemoglobin 17.1 g/dL (12.0-16.0); Mean Corpuscular Hemoglobin 29.8 pg (27.0-31.0); Mean Corpuscular Volume 88.1 fl (78.0-98.0); Platelet Count 263 10x3/uL (130-400); Red Blood Cell (RBC) Count 5.72 mill/uL (4.20-5.40); White Blood Cell (WBC) Count 13.0 10x3/uL (4.8-10.8)
[2025-06-01 05:03] LABS: ALT (SGPT) 42 U/L (Less than 34); AST (SGOT) 49 U/L (11-34); Albumin 4.3 g/dL (3.1-4.5); Alkaline Phosphatase 64 U/L (40-110); Anion Gap 21 mmol/L (10-20); BUN (Urea Nitrogen) 28 mg/dL (9.8-20.1); Bilirubin, Total 0.6 mg/dL (0.3-1.2); Calc. Creatinine Clearance 0 mL/min (70-130); Calcium 9.7 mg/dL (7.8-10.44); Carbon Dioxide 13 mmol/L (23-31); Chloride 106 mmol/L (98-107); Globulin 4.9 g/dL (2.4-3.5); Glucose 126 mg/dL (80-115); Lipase 42 U/L (8-78); Potassium 4.5 mmol/L (3.5-5.1); Sodium 135 mmol/L (136-145)
[2025-06-01 05:59] LABS: Bicarbonate (HCO3v) 15.5 mmol/L (22.0-28.0); CO2 Tension (PvCO2) 39.1 mmHg (42.0-51.0); Calcium, Ionized 1.30 mmol/L (1.15-1.33); Chloride 111 mmol/L (98-107); Hemoglobin - Calc 18.9 g/dL (12.0-16.0); Potassium 4.2 mmol/L (3.5-5.1); Sodium 134 mmol/L (138-145); T. Carbon Dioxide 16.7 mmol/L (22.0-28.0); vO2 Saturation-calc 75.9 % (60.0-85.0)
[2025-06-01 06:07] LABS: Glucose, Urine (Dipstick) Negative (Negative); Leukocyte Negative (Negative); Protein, Urine (Dipstick) Trace mg/dL (Neg-Trace); Specific Gravity, Urine 1.010 (1.005-1.030)
[2025-06-01] MEDS ORDERED: Sodium Bicarb 50 MEQ/50 ML Abboject 8.4% SYRINGE ONE ×2 (06:07→09:19)
[2025-06-01 06:14] LABS: Bacteria/HPF None Seen HPF (None Seen); CAUTI Indications for Culture Dysuria,urgency,freq; RBC/HPF None Seen HPF (0-3); Urine Culture Reflex No No; WBC/HPF None Seen HPF (0-3)
[2025-06-01 08:41] LABS: Bicarbonate (HCO3v) 19.1 mmol/L (22.0-28.0); CO2 Tension (PvCO2) 37.1 mmHg (42.0-51.0); Calcium, Ionized 1.21 mmol/L (1.15-1.33); Chloride 111 mmol/L (98-107); Hemoglobin - Calc 16.0 g/dL (12.0-16.0); Potassium 4.2 mmol/L (3.5-5.1); Sodium 138 mmol/L (138-145); T. Carbon Dioxide 20.2 mmol/L (22.0-28.0); vO2 Saturation-calc 58.8 % (60.0-85.0)
[2025-06-01 08:46] LABS: Anion Gap 16 mmol/L (10-20); BUN (Urea Nitrogen) 22 mg/dL (9.8-20.1); Calc. Creatinine Clearance 0 mL/min (70-130); Calcium 8.8 mg/dL (7.8-10.44); Carbon Dioxide 17 mmol/L (23-31); Chloride 108 mmol/L (98-107); Glucose 98 mg/dL (80-115); Potassium 4.1 mmol/L (3.5-5.1); Sodium 137 mmol/L (136-145)
[2025-06-01] MEDS ORDERED: Acetaminophen 500 MG TAB ONE (09:33)
[2025-06-01 10:20] LABS: Bicarbonate (HCO3v) 22.1 mmol/L (22.0-28.0); CO2 Tension (PvCO2) 39.3 mmHg (42.0-51.0); Calcium, Ionized 1.14 mmol/L (1.15-1.33); Chloride 109 mmol/L (98-107); Hemoglobin - Calc 16.3 g/dL (12.0-16.0); Potassium 5.2 mmol/L (3.5-5.1); Sodium 139 mmol/L (138-145); T. Carbon Dioxide 23.3 mmol/L (22.0-28.0); vO2 Saturation-calc 69.4 % (60.0-85.0)
[2025-06-01 10:28] LABS: Anion Gap 18 mmol/L (10-20); BUN (Urea Nitrogen) 21 mg/dL (9.8-20.1); Calc. Creatinine Clearance 0 mL/min (70-130); Calcium 8.6 mg/dL (7.8-10.44); Carbon Dioxide 18 mmol/L (23-31); Chloride 106 mmol/L (98-107); Glucose 89 mg/dL (80-115); Sodium 137 mmol/L (136-145)
[2025-06-01 10:56] LABS: Potassium 5.1 mmol/L (3.5-5.1)
[2025-06-02 05:50] LABS: Campy jejuni + coli by PCR Negative (Negative); STEC Shiga Toxin 1+2 Negative (Negative); Salmonella spp. by PCR Negative (Negative); Shigella spp + EIEC by PCR Negative (Negative)
== END 2025-06-01 11:46 | disposition home or self-care (01) ==
LOC: NAV ERS 03:53
DX: R19.7 Diarrhea, unspecified (principal); E86.0 Dehydration; E87.20 Acidosis, unspecified; I10 Essential (primary) hypertension; Z79.899 Other long term (current) drug therapy
CPT/HCPCS: 80048; 80053; 81001; 82330; 82435; 82803; 83605; 83690; 84132; 84295; 85014; 85025; 87505; J7030; J7120; 36415; 96361; 96374; 96376

== ENCOUNTER 2025-06-02 08:26 | Emergency (ER) | payer MEDICARE ==
[2025-06-02] MEDS ORDERED: Diphenoxylate HCl/Atropine Tablet ONE ×2 (08:58→09:02)
[2025-06-02 09:21] LABS: #Basophils 0.1 thou/uL (0.0-0.2); #Eosinophils 0.1 thou/uL (0.0-0.7); #Lymphocytes 3.4 thou/uL (1.20-3.40); #Monocytes 1.1 thou/uL (0.11-0.59); #Neutrophils 4.9 thou/uL (1.40-6.50); %Basophils 1.3 % (0.0-1.0); %Eosinophils 1.1 % (0.0-10.0); %Lymphocytes 35.4 % (21.0-51.0); %Monocytes 11.8 % (0.0-10.0); %Neutrophils 50.4 % (42.0-75.0); Hematocrit 43.7 % (36.0-47.0); Hemoglobin 14.7 g/dL (12.0-16.0); Mean Corpuscular Hemoglobin 29.5 pg (27.0-31.0); Mean Corpuscular Volume 87.6 fl (78.0-98.0); Platelet Count 258 10x3/uL (130-400); Red Blood Cell (RBC) Count 4.98 mill/uL (4.20-5.40); White Blood Cell (WBC) Count 9.7 10x3/uL (4.8-10.8)
[2025-06-02 09:32] LABS: Anion Gap 15 mmol/L (10-20); BUN (Urea Nitrogen) 15 mg/dL (9.8-20.1); Calc. Creatinine Clearance 0 mL/min (70-130); Calcium 9.1 mg/dL (7.8-10.44); Carbon Dioxide 18 mmol/L (23-31); Chloride 108 mmol/L (98-107); Glucose 102 mg/dL (80-115); Potassium 3.9 mmol/L (3.5-5.1); Sodium 137 mmol/L (136-145)
== END 2025-06-02 14:37 | disposition short-term general hospital (02) ==
LOC: NAV ERS 08:26
DX: E86.0 Dehydration (principal); K94.12 Enterostomy infection; I10 Essential (primary) hypertension; Z79.899 Other long term (current) drug therapy
CPT/HCPCS: 80048; 85025; J7120; 96360; 96361

== ENCOUNTER 2025-07-22 10:03 | Emergency (ER) | payer MEDICARE ==
[2025-07-22] MEDS ORDERED: Ondansetron PF 4 MG/2 ML Vial ONE (10:18)
[2025-07-22] MEDS ORDERED: Pantoprazole 40 MG VIAL ONE (10:18)
[2025-07-22 10:55] LABS: Hematocrit 52.9 % (36.0-47.0); Hemoglobin 18.1 g/dL (12.0-16.0); Mean Corpuscular Hemoglobin 30.8 pg (27.0-31.0); Mean Corpuscular Volume 90.2 fl (78.0-98.0); Platelet Count 273 10x3/uL (130-400); Red Blood Cell (RBC) Count 5.86 mill/uL (4.20-5.40); White Blood Cell (WBC) Count 25.7 10x3/uL (4.8-10.8)
[2025-07-22 11:16] LABS: ALT (SGPT) 32 U/L (Less than 34); AST (SGOT) 34 U/L (11-34); Albumin 4.6 g/dL (3.1-4.5); Alkaline Phosphatase 80 U/L (40-110); Anion Gap 26 mmol/L (10-20); BUN (Urea Nitrogen) 20 mg/dL (9.8-20.1); Bilirubin, Total 0.6 mg/dL (0.3-1.2); Calc. Creatinine Clearance 0 mL/min (70-130); Calcium 12.2 mg/dL (7.8-10.44); Carbon Dioxide 14 mmol/L (23-31); Chloride 103 mmol/L (98-107); Globulin 5.6 g/dL (2.4-3.5); Glucose 205 mg/dL (80-115); Lipase 44 U/L (8-78); Potassium 4.4 mmol/L (3.5-5.1); Sodium 139 mmol/L (136-145)
[2025-07-22 11:19] LABS: Bicarbonate (HCO3v) 18.8 mmol/L (22.0-28.0); CO2 Tension (PvCO2) 31.2 mmHg (42.0-51.0); Calcium, Ionized 1.26 mmol/L (1.15-1.33); Chloride 112 mmol/L (98-107); Hemoglobin - Calc 19.5 g/dL (12.0-16.0); Potassium 4.2 mmol/L (3.5-5.1); Sodium 135 mmol/L (138-145); T. Carbon Dioxide 19.7 mmol/L (22.0-28.0); vO2 Saturation-calc 89.8 % (60.0-85.0)
[2025-07-22 11:29] LABS: MDiff Complete? YES
[2025-07-22 11:31] LABS: Glucose, Urine (Dipstick) Negative (Negative); Leukocyte Negative (Negative); Protein, Urine (Dipstick) > or equal to 300 mg/dL (Neg-Trace); Specific Gravity, Urine Greater/Equal 1.030 (1.005-1.030)
[2025-07-22 12:17] LABS: Bacteria/HPF 2+ HPF (None Seen); CAUTI Indications for Culture Fever or rigors; RBC/HPF 0-3 HPF (0-3); WBC/HPF 0-3 HPF (0-3)
[2025-07-22 12:18] LABS: Urine Culture Reflex No No
== END 2025-07-22 15:39 | disposition home or self-care (01) ==
LOC: NAV ERS 10:03
DX: K52.9 Noninfective gastroenteritis and colitis, unspecified (principal); I10 Essential (primary) hypertension; E86.0 Dehydration; Z79.899 Other long term (current) drug therapy
CPT/HCPCS: 51701; 74177; 80053; 81001; 82330; 82435; 82803; 83690; 84132; 84295; 85014; 85025; 96361; 96374; 96375; J2405; J2470; J2550; J7120; Q9967